=== PATIENT | female | born 1955 | race Caucasian/White ===

== ENCOUNTER 2019-01-09 07:23 | Day surgery (SDC) | payer OTHER ==
[~2019-01-09] VITALS: Ht 152.4 cm; Wt 66.4 kg
[~2019-01-09 07:23] MED LIST: SODIUM CHLORIDE 0.9% 1,000 ML IV ONE
[2019-01-09] MEDS ORDERED: FentaNYL CITRATE-PF 100 MCG/2 ML VIAL ONE (07:54)
[2019-01-09] MEDS ORDERED: MIDAZOLAM HCL 2 MG/2 ML VIAL ONE (07:54)
[2019-01-09] MEDS ORDERED: MethylPREDNISolone SOD SUCC 125 MG/2 ML VIAL IVP ONE (09:15)
[2019-01-09] MEDS ORDERED: MethylPREDNISolone SOD SUCC 125 MG/2 ML VIAL ONE (09:26)
[2019-01-09] MEDS ORDERED: BENZOCAINE 20% 50 MCG/SPRAY 57 GM ONE (18:23)
[2019-01-09] MEDS ORDERED: ALBUTEROL SULFATE 2.5 MG/0.5 ML NEB SOLUTION NEB ONE (18:23)
[2019-01-09] MEDS ORDERED: LIDOCAINE 2% 30 ML JELLY ONE (18:23)
[2019-01-09] MEDS ORDERED: OXYGEN THERAPY IH SCH (20:00)
== END 2019-01-09 10:25 | disposition home or self-care (01) ==
LOC: SURGERY 07:23
PROVIDERS: ATTEND Internal Medicine Critical Care Medicine
DX: J38.4 Edema of larynx (principal); B37.0 Candidal stomatitis
CPT/HCPCS: 31623; 31624; 71045; 87015; 87070; 87101; 87206; 87220; 88108; 88312; 93005; J2250; J2930; J3010; J7030